=== PATIENT | male | born 1950 | race Caucasian/White ===

== ENCOUNTER 2023-11-14 07:43 | Inpatient (IN) | payer MEDICARE, OTHER ==
[~2023-11-14] VITALS: Ht 157.5 cm; Wt 57.2 kg
[2023-11-14] MEDS ORDERED: LIDOCAINE 2%-EPI 1:100,000 30 ML VIAL ONE (10:27)
[2023-11-14] MEDS ORDERED: dexaMETHasone SOD PHOSPHATE 1 ML ONE (10:27)
[2023-11-14] MEDS ORDERED: VANCOMYCIN 1 GM VIAL ONE (10:28)
[2023-11-14] MEDS ORDERED: OXYMETAZOLINE HCL NASAL SPRAY 30 ML BOTTLE NS ONE (10:28)
[2023-11-14] MEDS ORDERED: ERGO500040 PO (14:38)
[2023-11-14] MEDS ORDERED: ASPI-1420 PO (14:38)
[2023-11-14] MEDS ORDERED: CYAN1TAB8 SL (14:38)
[2023-11-14] MEDS ORDERED: TAMS-12 PO (14:38)
[2023-11-14] MEDS ORDERED: ATOR20TA PO (14:38)
[2023-11-14] MEDS ORDERED: ICOS1CAP PO (14:38)
[2023-11-14] MEDS ORDERED: IV NS 0.9% 1,000 ML IV PRN (15:30)
[2023-11-14] MEDS ORDERED: ONDANSETRON HCL/PF 4 MG/2 ML VIAL IV PRN (15:30)
[2023-11-14] MEDS ORDERED: HYDROMORPHONE 1 MG/1 ML DISP.SYRIN IV PRN (15:30)
[2023-11-14] MEDS ORDERED: ACETAMINOPHEN 325 MG TABLET PO PRN (15:30)
[2023-11-14 16:00] VITALS: BP 107/60; TEMP 97.9; O2SAT 96
[2023-11-14 20:00] VITALS: BP 128/71; TEMP 98.6; O2SAT 96
[2023-11-14 21:00] VITALS: BP 124/76; TEMP 98; O2SAT 98
[2023-11-15] MEDS: VANCOMYCIN 1 GM in IV D5W 250ml IV SCH (00:45)
[2023-11-15 08:00] VITALS: BP 120/69; TEMP 98.2; O2SAT 94
[2023-11-15] MEDS ORDERED: Medication Not On Formulary EA (Icosapent Ethyl (Vascepa) 2 GM) PO SCH (09:00)
[2023-11-15] MEDS: TAMSULOSIN 0.4 MG CAP.SR.24H PO SCH (09:40)
[2023-11-15] MEDS: ASPIRIN EC 81 MG TABLET.DR PO SCH (09:40)
[2023-11-15] MEDS: POLYETHYLENE GLYCOL 3350 17 GM POWD.PACK PO ONE (11:07)
[2023-11-16] MEDS ORDERED: ATORVASTATIN 10 MG TABLET PO SCH (09:00)
== END 2023-11-15 11:05 | disposition home or self-care (01) | DRG 516 ==
LOC: DS 07:43 → MED 14:54
PROVIDERS: ADMIT Student in an Organized Health Care Education/Training Program; ATTEND Student in an Organized Health Care Education/Training Program
PROC: 0NPW0JZ Removal of Synthetic Substitute from Facial Bone, Open Approach (ICD-10-PCS; principal; 2023-11-14)
PROC: 0NSR04Z Reposition Maxilla with Internal Fixation Device, Open Approach (ICD-10-PCS; 2023-11-14)
PROC: 0NHT04Z Insertion of Internal Fixation Device into Right Mandible, Open Approach (ICD-10-PCS; 2023-11-14)
PROC: 0NHV04Z Insertion of Internal Fixation Device into Left Mandible, Open Approach (ICD-10-PCS; 2023-11-14)
PROC: 0NUR07Z Supplement Maxilla with Autologous Tissue Substitute, Open Approach (ICD-10-PCS; 2023-11-14)
PROC: 0NBR0ZX Excision of Maxilla, Open Approach, Diagnostic (ICD-10-PCS; 2023-11-14)
DX: T84.7XXA Infection and inflammatory reaction due to other internal orthopedic prosthetic devices, implants and grafts, initial encounter (principal); S02.40CK Maxillary fracture, right side, subsequent encounter for fracture with nonunion; S02.40DK Maxillary fracture, left side, subsequent encounter for fracture with nonunion; S02.69XK Fracture of mandible of other specified site, subsequent encounter for fracture with nonunion; E78.5 Hyperlipidemia, unspecified; N40.0 Benign prostatic hyperplasia without lower urinary tract symptoms; D16.4 Benign neoplasm of bones of skull and face; X58.XXXD Exposure to other specified factors, subsequent encounter; M27.2 Inflammatory conditions of jaws; M60.9 Myositis, unspecified; J32.0 Chronic maxillary sinusitis; Y83.8 Other surgical procedures as the cause of abnormal reaction of the patient, or of later complication, without mention of misadventure at the time of the procedure; Y92.009 Unspecified place in unspecified non-institutional (private) residence as the place of occurrence of the external cause
CPT/HCPCS: 88300-TC; 88305-TC; 88311-TC; C1713; G0378; J0461; J0690; J1100; J2310; J2704; J3370; J3490; J7060

== ENCOUNTER 2024-04-16 06:29 | Inpatient (IN) | payer MEDICARE, OTHER ==
[~2024-04-16] VITALS: Ht 170.2 cm; Wt 62.6 kg
[~2024-04-16 06:29] MED LIST: ASPI-1420 PO; ATOR20TA PO; CYAN1TAB8 SL; ERGO500040 PO; ICOS1CAP PO; TAMS-12 PO
[2024-04-16] MEDS ORDERED: ANESTHESIA TRAY IN PYXIS 1 EA TRAY MC ONE (06:30)
[2024-04-16] MEDS ORDERED: VANCOMYCIN 1 GM VIAL ONE (06:31)
[2024-04-16] MEDS ORDERED: LIDOCAINE 2%-EPI 1:100,000 30 ML VIAL ONE (06:31)
[2024-04-16] MEDS ORDERED: dexaMETHasone SOD PHOSPHATE 2 ML ONE (06:31)
[2024-04-16] MEDS ORDERED: OXYMETAZOLINE HCL NASAL SPRAY 30 ML BOTTLE NS ONE (06:31)
[2024-04-16] MEDS ORDERED: FENTANYL PF 250MCG/5ML AMPUL ONE (07:00)
[2024-04-16] MEDS ORDERED: ROCURONIUM BROMIDE 50 MG/5 ML ONE (07:01)
[2024-04-16] MEDS ORDERED: LABETALOL 20 MG/4 ML VIAL ONE (07:40)
[2024-04-16] MEDS ORDERED: ONDANSETRON HCL/PF 4 MG/2 ML VIAL IVP PRN (14:00)
[2024-04-16] MEDS ORDERED: ACETAMINOPHEN 325 MG TABLET PO PRN (14:00)
[2024-04-16] MEDS ORDERED: HYDROMORPHONE 1 MG/1 ML DISP.SYRIN IV PRN (14:00)
[2024-04-16] MEDS ORDERED: IV NS 0.9% 1,000 ML IV PRN (14:00)
== END 2024-04-16 14:17 | disposition home or self-care (01) | DRG 497 ==
LOC: DS 06:29 → MED 09:25
PROC: 0NPW04Z Removal of Internal Fixation Device from Facial Bone, Open Approach (ICD-10-PCS; principal; 2024-04-16)
PROC: 0N5V0ZZ Destruction of Left Mandible, Open Approach (ICD-10-PCS; 2024-04-16)
PROC: 0N5R0ZZ Destruction of Maxilla, Open Approach (ICD-10-PCS; 2024-04-16)
PROC: 0N5T0ZZ Destruction of Right Mandible, Open Approach (ICD-10-PCS; 2024-04-16)
DX: T84.69XA Infection and inflammatory reaction due to internal fixation device of other site, initial encounter (principal); E78.5 Hyperlipidemia, unspecified; N40.0 Benign prostatic hyperplasia without lower urinary tract symptoms; K12.30 Oral mucositis (ulcerative), unspecified; Y83.8 Other surgical procedures as the cause of abnormal reaction of the patient, or of later complication, without mention of misadventure at the time of the procedure; Y92.009 Unspecified place in unspecified non-institutional (private) residence as the place of occurrence of the external cause; M89.38 Hypertrophy of bone, other site
CPT/HCPCS: A4338; G0378; J0360; J0690; J1100; J2704; J3010; J3370; J3490